=== PATIENT | male | born 1975 | race Caucasian/White ===

== ENCOUNTER 2020-12-14 15:37 | Inpatient (IN) | payer SELFPAY ==
[~2020-12-14] VITALS: Ht 185.4 cm; Wt 117.1 kg
[2020-12-14 16:15] LABS: RED BLOOD COUNT 7.35 M/UL (4.20-5.50)
[2020-12-14 16:19] LABS: HEMOGLOBIN 22.9 gm/dl (14.0-17.5)
[2020-12-14 16:32] LABS: BUN/CREATININE RATIO 33 (0-10)
[2020-12-14] MEDS ORDERED: C-10001000 MG PO (19:26)
[2020-12-14] MEDS ORDERED: HYDROCODONE-AC1 EAC1 PO (19:27)
[2020-12-14] MEDS ORDERED: ZINC50 M1 PO (19:27)
[2020-12-14] MEDS ORDERED: AZELASTINE137 MCG/0. (19:27)
[2020-12-14] MEDS ORDERED: METHOCARBAMOL500 MG PO (19:28)
[2020-12-14] MEDS ORDERED: OMEPRAZOLE40 MG PO (19:29)
[2020-12-14] MEDS ORDERED: COUGH DM PO (19:29)
[2020-12-14] MEDS ORDERED: FENOFIBRATE54 MG PO (19:29)
[2020-12-14] MEDS ORDERED: TYLENOL EXTRA500 MG PO (19:30)
[2020-12-14] MEDS ORDERED: IBU800 MG PO (19:32)
[2020-12-15 03:51] LABS: HEMOGLOBIN 19.7 gm/dl (14.0-17.5); RED BLOOD COUNT 6.42 M/UL (4.20-5.50); WHITE BLOOD COUNT 6.6 K/UL (4.5-11.0)
[2020-12-15 04:12] LABS: BUN/CREATININE RATIO 32 (0-10)
[2020-12-16 07:51] LABS: HEMOGLOBIN 18.4 gm/dl (14.0-17.5); RED BLOOD COUNT 6.04 M/UL (4.20-5.50)
[2020-12-16 08:27] LABS: BUN/CREATININE RATIO 33 (0-10)
[2020-12-17 06:36] LABS: HEMOGLOBIN 17.5 gm/dl (14.0-17.5); RED BLOOD COUNT 5.74 M/UL (4.20-5.50); WHITE BLOOD COUNT 11.8 K/UL (4.5-11.0)
[2020-12-17 07:11] LABS: BUN/CREATININE RATIO 32 (0-10)
[2020-12-18 06:41] LABS: HEMOGLOBIN 17.4 gm/dl (14.0-17.5); RED BLOOD COUNT 5.7 M/UL (4.20-5.50); WHITE BLOOD COUNT 11.6 K/UL (4.5-11.0)
[2020-12-18 07:04] LABS: BUN/CREATININE RATIO 29 (0-10)
[2020-12-18] MEDS ORDERED: LEVOFLOXACIN500 MG PO (12:07)
[2020-12-18] MEDS ORDERED: DECADRON6 MG PO (12:07)
[2020-12-18] MEDS ORDERED: PROAIR HFA8.5 GM INH (12:07)
== END 2020-12-18 16:07 | disposition home or self-care (01) | DRG 177 ==
LOC: ER1 15:37 → MED SURG 4 17:42 → CDU 17:42 → MED SURG 4 12-15 18:50
PROVIDERS: Emergency Medicine; ADMIT Internal Medicine
PROC: XW033E5 Introduction of Remdesivir Anti-infective into Peripheral Vein, Percutaneous Approach, New Technology Group 5 (ICD-10-PCS; principal; 2020-12-14)
PROC: 3E0333Z Introduction of Anti-inflammatory into Peripheral Vein, Percutaneous Approach (ICD-10-PCS; 2020-12-14)
PROC: 8E0ZXY6 Isolation (ICD-10-PCS; 2020-12-14)
PROC: 3E02340 Introduction of Influenza Vaccine into Muscle, Percutaneous Approach (ICD-10-PCS; 2020-12-15)
DX: U07.1 COVID-19 (principal); J12.82 Pneumonia due to coronavirus disease 2019; J96.01 Acute respiratory failure with hypoxia; N17.9 Acute kidney failure, unspecified; J98.11 Atelectasis; E87.1 Hypo-osmolality and hyponatremia; E11.9 Type 2 diabetes mellitus without complications; E83.39 Other disorders of phosphorus metabolism; E78.5 Hyperlipidemia, unspecified; D75.1 Secondary polycythemia; M54.9 Dorsalgia, unspecified; F17.210 Nicotine dependence, cigarettes, uncomplicated; Z96.652 Presence of left artificial knee joint; Z90.89 Acquired absence of other organs; Z98.890 Other specified postprocedural states; Z23 Encounter for immunization; Z88.0 Allergy status to penicillin; Z88.1 Allergy status to other antibiotic agents
CPT/HCPCS: 36415; 36600; 71045; 80048; 80053; 80307; 81001; 82550; 82553; 82803; 82962; 83036; 83540; 83550; 83605; 83735; 83874; 83880; 84100; 84484; 85025; 85027; 85379; 85652; 86140; 87040; 87070; 87205; 93005; 94640; 94664; 94760; 96374; 99285; J1100; J1650; J3475; J7030; Q9967; U0002